=== PATIENT | male | born 1995 | race Caucasian/White ===

== ENCOUNTER → 2017-03-17 | Outpatient (CLI) | payer OTHER ==
[~2017-03-17] VITALS: Ht 174.8 cm; Wt 78.1 kg
--- NOTE | 2017-03-17 13:09 | DI ---
INDICATION: ITS.REASON: J93.9 LEFT PNEUMOTHORAX PROCEDURE: CHEST 2-VIEWS UPRIGHT (PA \T\ LAT) Encounter: Initial COMPARISON: None FINDINGS: The lungs are clear without evidence of focal abnormal airspace opacity. There is no pleural effusion or pneumothorax. The heart size, mediastinal contours and pulmonary vascularity are within normal limits. There is no significant skeletal abnormality. IMPRESSION: No acute cardiopulmonary disease. .
== END ==
LOC: RC 10:18
PROVIDERS: ATTEND Orthopaedic Surgery
DX: J93.9 Pneumothorax, unspecified (principal)
CPT/HCPCS: 94060; 94726